=== PATIENT | male | born 1975 | race Hispanic/Latino ===

== ENCOUNTER 2022-09-17 06:23 | Emergency (ER) | payer MEDICAID, SELFPAY ==
[2022-09-17] MEDS ORDERED: Ipratropium/Albuterol 3 ML NEB ONE (06:38)
[2022-09-17 07:19] LABS: SARS-CoV-2 NAA Rapid Test Not Detected (NotDetected)
[2022-09-17] MEDS ORDERED: Ketorolac Tromethamine 30 MG/ML VIAL ONE (07:26)
== END 2022-09-17 07:45 | disposition home or self-care (01) ==
LOC: CSHERS 06:23
DX: J44.1 Chronic obstructive pulmonary disease with (acute) exacerbation (principal); F17.220 Nicotine dependence, chewing tobacco, uncomplicated; Z20.822 Contact with and (suspected) exposure to COVID-19
CPT/HCPCS: 71045; 93005; 94760; 96372; J1885; J7620